=== PATIENT | female | born 1965 | race Hispanic/Latino ===

== ENCOUNTER 2023-05-20 09:50 | Inpatient (IN) | payer BC ==
[~2023-05-20] VITALS: Ht 162.6 cm; Wt 146.6 kg
[2023-05-20 10:31] LABS: BASOPHILS # (AUTO) 0.06 K/uL (0.00-0.20); BASOPHILS % (AUTO) 0.8 % (0.0-5.0); EOSINOPHILS # (AUTO) 0.15 K/uL (0.00-0.70); EOSINOPHILS % (AUTO) 2.1 % (0.0-8.0); HEMATOCRIT 37.4 % (36-48); IMMATURE GRANULOCYTE ABSOLUTE 0.02 K/uL (0-1); LYMPHOCYTES # (AUTO) 2.2 K/uL (1.0-4.8); LYMPHOCYTES % (AUTO) 29.5 % (21.0-51.0); MEAN CORPUSCULAR HEMOGLOBIN 23.9 pg (27.0-33.0); MEAN CORPUSCULAR HGB CONC 31.6 g/dL (32.0-36.0); MEAN CORPUSCULAR VOLUME 75.7 fL (79-99); MONOCYTES # (AUTO) 0.4 K/uL (0.1-1.0); MONOCYTES % (AUTO) 5.5 % (3.0-13.0); NEUTROPHILS # (AUTO) 4.5 K/uL (1.8-7.7); NEUTROPHILS % (AUTO) 61.8 % (40.0-77.0); PLATELET COUNT (AUTO) 289 K/uL (130-400); RED BLOOD CELL COUNT(AUTO) 4.94 MIL/uL (4.00-5.50); RED CELL DISTRIBUTION WIDTH 15.7 % (11.0-15.5); WHITE BLOOD COUNT (AUTO) 7.3 K/uL (4.8-10.8)
[2023-05-20 10:47] LABS: CREATININE 0.6 mg/dL (0.5-1.5); POTASSIUM 3.7 mmol/L (3.5-5.1)
[2023-05-20 10:52] LABS: ALBUMIN 3.2 g/dL (3.5-5.0); BILIRUBIN,TOTAL 0.5 mg/dL (0.2-1.0); TOTAL PROTEIN, SERUM 7.8 g/dL (6.0-8.3)
[2023-05-20] MEDS ORDERED: IOHEXOL-350 75 ML VIAL IV ONE (11:26)
[2023-05-20] MEDS ORDERED: ONDANSETRON 4MG INJ IVP ONE (11:30)
[2023-05-20] MEDS ORDERED: 0.9%NACL 1000ML 1,000 ML IV ONE (11:30)
[2023-05-20] MEDS ORDERED: DIATR MEGLU/DIATRIZOATE SODIUM 30 ML BOTTLE ONE (11:51)
[2023-05-20] MEDS: DEXTROSE 5 %-0.45 % NACL 1,000 ML IV SCH (17:01)
[2023-05-20] MEDS: KETOROLAC 15MG/ML VIAL (15MG/ML) IV PRN (19:48)
[2023-05-20] MEDS ORDERED: SERT25TA PO (22:49)
[2023-05-20 23:20] VITALS: BP 141/64; PULSE 57; RESP 20
[2023-05-21] VITALS (30 sets, daily range): BP systolic 104–167; BP diastolic 53–90; PULSE 47–90; RESP 14–20; O2SAT 99–100
[2023-05-21 04:59] LABS: HEMATOCRIT 32.2 % (36-48); MEAN CORPUSCULAR HEMOGLOBIN 24.1 pg (27.0-33.0); MEAN CORPUSCULAR HGB CONC 31.7 g/dL (32.0-36.0); MEAN CORPUSCULAR VOLUME 76.1 fL (79-99); RED BLOOD CELL COUNT(AUTO) 4.23 MIL/uL (4.00-5.50); RED CELL DISTRIBUTION WIDTH 15.8 % (11.0-15.5); WHITE BLOOD COUNT (AUTO) 5.5 K/uL (4.8-10.8)
[2023-05-21 05:20] LABS: ALBUMIN 2.7 g/dL (3.5-5.0); BILIRUBIN,TOTAL 0.5 mg/dL (0.2-1.0); CREATININE 0.5 mg/dL (0.5-1.5); POTASSIUM 3.6 mmol/L (3.5-5.1); TOTAL PROTEIN, SERUM 6.4 g/dL (6.0-8.3)
[2023-05-21] MEDS: DEXTROSE 5 %-0.45 % NACL 1,000 ML IV SCH ×2 (09:24→21:35)
[2023-05-21] MEDS ORDERED: ROCURONIUM 10MG/1ML SYR 10 MG/ML ML ONE ×2 (13:12→14:06)
[2023-05-21] MEDS ORDERED: FENTANYL CITRATE PF 50 MCG/1 ML 5ML AMP IV ONE (13:12)
[2023-05-21] MEDS ORDERED: MIDAZOLAM HCL 1 MG/ML 2ML VIAL ONE (13:12)
[2023-05-21] MEDS ORDERED: SUCCINYLCHOLINE 200MG/10ML SYR ONE (13:12)
[2023-05-21] MEDS ORDERED: PROPOFOL 10 MG/ML 20ML VIAL IV ONE (13:12)
[2023-05-21] MEDS ORDERED: LIDOCAINE PF 100MG/5ML (2%) SYRINGE 5ML ONE (13:12)
[2023-05-21] MEDS ORDERED: NEOSTIGMINE 5MG/5ML SYR IV ONE (15:03)
[2023-05-21] MEDS ORDERED: GLYCOPYRROLATE 1 MG/5 ML SYRINGE ONE (15:03)
[2023-05-21] MEDS ORDERED: MEPERIDINE-PF 25 MG/ML SYG ONE (15:35)
[2023-05-21] MEDS ORDERED: KETOROLAC 30MG VIAL (30MG/ML) ONE (15:35)
[2023-05-21] MEDS ORDERED: ONDANSETRON 4MG INJ ONE (15:35)
[2023-05-21] MEDS ORDERED: FENTANYL CITRATE PF 50 MCG/1 ML 2ML VIAL ONE (15:39)
[2023-05-21] MEDS ORDERED: GLYCOPYRROLATE 0.2 MG/ML 5 ML VIAL ONE (15:43)
[2023-05-21] MEDS ORDERED: CEFAZOLIN SODIUM 2 GM VIAL ONE (16:13)
[2023-05-21] MEDS ORDERED: ONDANSETRON 4MG INJ IVP PRN (18:00)
[2023-05-21] MEDS: CEFAZOLIN SODIUM 2 GM VIAL IVPB SCH (18:22)
[2023-05-21] MEDS: KETOROLAC 15MG/ML VIAL (15MG/ML) IV PRN (18:26)
[2023-05-21] MEDS: TRAMADOL HCL 50 MG TABLET PO PRN (21:27)
[2023-05-22] VITALS (7 sets, daily range): BP systolic 103–126; BP diastolic 42–82; PULSE 88–105; RESP 18–20; O2SAT 95
[2023-05-22] MEDS: CEFAZOLIN SODIUM 2 GM VIAL IVPB SCH ×3 (01:57→18:51)
[2023-05-22] MEDS: TRAMADOL HCL 50 MG TABLET PO PRN ×3 (04:16→21:41)
[2023-05-22 05:27] LABS: BASOPHILS # (AUTO) 0.02 K/uL (0.00-0.20); BASOPHILS % (AUTO) 0.2 % (0.0-5.0); HEMATOCRIT 32.5 % (36-48); IMMATURE GRANULOCYTE ABSOLUTE 0.04 K/uL (0-1); LYMPHOCYTES # (AUTO) 0.8 K/uL (1.0-4.8); LYMPHOCYTES % (AUTO) 6.8 % (21.0-51.0); MEAN CORPUSCULAR HEMOGLOBIN 23.9 pg (27.0-33.0); MEAN CORPUSCULAR HGB CONC 31.1 g/dL (32.0-36.0); MONOCYTES # (AUTO) 0.6 K/uL (0.1-1.0); MONOCYTES % (AUTO) 5.3 % (3.0-13.0); NEUTROPHILS # (AUTO) 10.1 K/uL (1.8-7.7); NEUTROPHILS % (AUTO) 87.4 % (40.0-77.0); PLATELET COUNT (AUTO) 235 K/uL (130-400); RED BLOOD CELL COUNT(AUTO) 4.22 MIL/uL (4.00-5.50); RED CELL DISTRIBUTION WIDTH 15.8 % (11.0-15.5); WHITE BLOOD COUNT (AUTO) 11.5 K/uL (4.8-10.8)
[2023-05-22 05:34] LABS: CREATININE 0.7 mg/dL (0.5-1.5); POTASSIUM 3.5 mmol/L (3.5-5.1)
[2023-05-22] MEDS: DEXTROSE 5 %-0.45 % NACL 1,000 ML IV SCH ×2 (10:06→22:20)
[2023-05-22] MEDS: KETOROLAC 15MG/ML VIAL (15MG/ML) IV PRN ×2 (10:13→23:51)
[2023-05-23] VITALS (8 sets, daily range): BP systolic 114–138; BP diastolic 51–92; PULSE 76–107; RESP 20; O2SAT 92
[2023-05-23] MEDS: CEFAZOLIN SODIUM 2 GM VIAL IVPB SCH ×3 (02:34→18:11)
[2023-05-23 04:47] LABS: BASOPHILS # (AUTO) 0.04 K/uL (0.00-0.20); BASOPHILS % (AUTO) 0.3 % (0.0-5.0); EOSINOPHILS # (AUTO) 0.08 K/uL (0.00-0.70); EOSINOPHILS % (AUTO) 0.7 % (0.0-8.0); HEMATOCRIT 33.6 % (36-48); IMMATURE GRANULOCYTE ABSOLUTE 0.07 K/uL (0-1); LYMPHOCYTES # (AUTO) 1.3 K/uL (1.0-4.8); LYMPHOCYTES % (AUTO) 10.9 % (21.0-51.0); MEAN CORPUSCULAR HEMOGLOBIN 24.2 pg (27.0-33.0); MEAN CORPUSCULAR HGB CONC 31.3 g/dL (32.0-36.0); MEAN CORPUSCULAR VOLUME 77.4 fL (79-99); MONOCYTES # (AUTO) 0.8 K/uL (0.1-1.0); MONOCYTES % (AUTO) 6.3 % (3.0-13.0); NEUTROPHILS # (AUTO) 9.7 K/uL (1.8-7.7); NEUTROPHILS % (AUTO) 81.2 % (40.0-77.0); PLATELET COUNT (AUTO) 232 K/uL (130-400); RED BLOOD CELL COUNT(AUTO) 4.34 MIL/uL (4.00-5.50); RED CELL DISTRIBUTION WIDTH 16.5 % (11.0-15.5)
[2023-05-23 05:10] LABS: ALBUMIN 2.6 g/dL (3.5-5.0); BILIRUBIN,TOTAL 1.1 mg/dL (0.2-1.0); CREATININE 0.7 mg/dL (0.5-1.5); POTASSIUM 3.9 mmol/L (3.5-5.1); TOTAL PROTEIN, SERUM 6.9 g/dL (6.0-8.3)
[2023-05-23] MEDS: ACETAMINOPHEN 500 MG TABLET PO PRN ×2 (08:31→20:05)
[2023-05-23] MEDS: KETOROLAC 15MG/ML VIAL (15MG/ML) IV PRN ×2 (08:32→17:19)
[2023-05-23] MEDS: DEXTROSE 5 %-0.45 % NACL 1,000 ML IV SCH (09:45)
[2023-05-23] MEDS ORDERED: INSULIN HUMULIN R 100 UNIT/ML 3ML SQ SCH (11:30)
[2023-05-23] MEDS: TRAMADOL HCL 50 MG TABLET PO PRN ×2 (15:32→23:28)
[2023-05-23] MEDS: INSULIN HUMULIN R 100 UNIT/ML 3ML SQ SCH ×2 (16:30→19:41)
[2023-05-24] VITALS: BP 116/65; PULSE 97; RESP 20
[2023-05-24] MEDS: DEXTROSE 5 %-0.45 % NACL 1,000 ML IV SCH (01:00)
[2023-05-24] MEDS: CEFAZOLIN SODIUM 2 GM VIAL IVPB SCH ×3 (03:01→17:58)
[2023-05-24] MEDS: KETOROLAC 15MG/ML VIAL (15MG/ML) IV PRN ×3 (03:27→22:55)
[2023-05-24 04:00] VITALS: BP 148/55; PULSE 93; RESP 20
[2023-05-24] MEDS: INSULIN HUMULIN R 100 UNIT/ML 3ML SQ SCH ×4 (05:45→20:50)
[2023-05-24 08:00] VITALS: BP 120/72; PULSE 88; RESP 18; O2SAT 97
[2023-05-24] MEDS: 0.9%NACL 1000ML 1,000 ML IV SCH (09:06)
[2023-05-24 12:00] VITALS: BP 128/74; PULSE 85; RESP 20
[2023-05-24 16:00] VITALS: BP 130/68; PULSE 71; RESP 20
[2023-05-24] MEDS ORDERED: SERT25TA PO (17:28)
[2023-05-24 20:00] VITALS: BP 161/83; PULSE 83; RESP 18
[2023-05-24] MEDS: TRAMADOL HCL 50 MG TABLET PO PRN (21:05)
[2023-05-24] MEDS: ACETAMINOPHEN 500 MG TABLET PO PRN (23:48)
[2023-05-25] VITALS (9 sets, daily range): BP systolic 110–157; BP diastolic 50–92; PULSE 76–103; RESP 18–21; TEMP 98.6; O2SAT 100
[2023-05-25] MEDS: CEFAZOLIN SODIUM 2 GM VIAL IVPB SCH ×2 (02:04→10:51)
[2023-05-25] MEDS: 0.9%NACL 1000ML 1,000 ML IV SCH (04:30)
[2023-05-25 05:31] LABS: HEMATOCRIT 33.6 % (36-48); MEAN CORPUSCULAR HEMOGLOBIN 24.2 pg (27.0-33.0); MEAN CORPUSCULAR HGB CONC 31.5 g/dL (32.0-36.0); MEAN CORPUSCULAR VOLUME 76.7 fL (79-99); RED BLOOD CELL COUNT(AUTO) 4.38 MIL/uL (4.00-5.50); RED CELL DISTRIBUTION WIDTH 16.5 % (11.0-15.5)
[2023-05-25 05:44] LABS: ALBUMIN 2.4 g/dL (3.5-5.0); CREATININE 0.8 mg/dL (0.5-1.5); POTASSIUM 3.4 mmol/L (3.5-5.1); TOTAL PROTEIN, SERUM 7.1 g/dL (6.0-8.3)
[2023-05-25] MEDS: INSULIN HUMULIN R 100 UNIT/ML 3ML SQ SCH ×4 (07:30→21:00)
[2023-05-25] MEDS: SERTRALINE HCL 50 MG TABLET PO SCH (08:43)
[2023-05-25] MEDS: TRAMADOL HCL 50 MG TABLET PO PRN (10:51)
[2023-05-25] MEDS: ZOSYN 3.375GM +NS 50ML IVPB SCH ×2 (13:54→21:05)
[2023-05-25] MEDS ORDERED: 0.9%NACL 50ML IV SCH (14:00)
[2023-05-25] MEDS ORDERED: DIATR MEGLU/DIATRIZOATE SODIUM 30 ML BOTTLE ONE (14:27)
[2023-05-25] MEDS ORDERED: IOHEXOL 350 MG/ML 100ML INFUS..BTL IV ONE (15:42)
[2023-05-26] MEDS: 0.9%NACL 1000ML 1,000 ML IV SCH ×3 (00:30→20:30)
[2023-05-26] MEDS: TRAMADOL HCL 50 MG TABLET PO PRN ×3 (02:11→22:43)
[2023-05-26 04:05] VITALS: BP 131/63; PULSE 92; RESP 17
[2023-05-26 06:16] LABS: BASOPHILS # (AUTO) 0.03 K/uL (0.00-0.20); BASOPHILS % (AUTO) 0.4 % (0.0-5.0); EOSINOPHILS # (AUTO) 0.01 K/uL (0.00-0.70); EOSINOPHILS % (AUTO) 0.1 % (0.0-8.0); IMMATURE GRANULOCYTE ABSOLUTE 0.05 K/uL (0-1); LYMPHOCYTES # (AUTO) 0.7 K/uL (1.0-4.8); LYMPHOCYTES % (AUTO) 9.9 % (21.0-51.0); MEAN CORPUSCULAR HEMOGLOBIN 24.1 pg (27.0-33.0); MEAN CORPUSCULAR HGB CONC 31.8 g/dL (32.0-36.0); MEAN CORPUSCULAR VOLUME 75.9 fL (79-99); MONOCYTES # (AUTO) 0.5 K/uL (0.1-1.0); MONOCYTES % (AUTO) 6.5 % (3.0-13.0); NEUTROPHILS # (AUTO) 6.2 K/uL (1.8-7.7); NEUTROPHILS % (AUTO) 82.4 % (40.0-77.0); PLATELET COUNT (AUTO) 172 K/uL (130-400); RED BLOOD CELL COUNT(AUTO) 3.69 MIL/uL (4.00-5.50); RED CELL DISTRIBUTION WIDTH 16.6 % (11.0-15.5); WHITE BLOOD COUNT (AUTO) 7.5 K/uL (4.8-10.8)
[2023-05-26] MEDS: ZOSYN 3.375GM +NS 50ML IVPB SCH (06:17)
[2023-05-26 06:39] LABS: ALBUMIN 1.9 g/dL (3.5-5.0); BILIRUBIN,TOTAL 1.1 mg/dL (0.2-1.0); CREATININE 0.6 mg/dL (0.5-1.5); POTASSIUM 3.4 mmol/L (3.5-5.1); TOTAL PROTEIN, SERUM 6.1 g/dL (6.0-8.3)
[2023-05-26] MEDS: INSULIN HUMULIN R 100 UNIT/ML 3ML SQ SCH ×4 (07:30→21:00)
[2023-05-26 08:00] VITALS: BP 127/74; PULSE 87; RESP 18
[2023-05-26 08:30] VITALS: O2SAT 97
[2023-05-26] MEDS: SERTRALINE HCL 50 MG TABLET PO SCH (09:00)
[2023-05-26] MEDS: FLUCONAZOLE 200 MG/NS 100 ML IV SCH (10:15)
[2023-05-26] MEDS ORDERED: COMPOUND IV MISC 1 EACH IVSOLN MISC PRN (11:00)
[2023-05-26] MEDS: MEROPENEM 1 GM in 0.9%NACL 100ML 100 ML IVPB SCH ×2 (11:04→17:39)
[2023-05-26 11:30] VITALS: BP 128/69; PULSE 84; RESP 18
[2023-05-26 17:17] VITALS: BP 123/72; PULSE 88; RESP 18
[2023-05-26 20:34] VITALS: BP 131/72; PULSE 84; RESP 18
[2023-05-26] MEDS ORDERED: TRAMADOL HCL 50 MG TABLET ONE (22:41)
[2023-05-27] VITALS (9 sets, daily range): BP systolic 110–140; BP diastolic 58–78; PULSE 81–95; RESP 18–19; O2SAT 95–97
[2023-05-27] MEDS: MEROPENEM 1 GM in 0.9%NACL 100ML 100 ML IVPB SCH ×3 (02:04→16:52)
[2023-05-27] MEDS: INSULIN HUMULIN R 100 UNIT/ML 3ML SQ SCH ×4 (07:30→20:47)
[2023-05-27] MEDS: SERTRALINE HCL 50 MG TABLET PO SCH (09:26)
[2023-05-27] MEDS: FLUCONAZOLE 200 MG/NS 100 ML IV SCH (09:27)
[2023-05-27] MEDS: TRAMADOL HCL 50 MG TABLET PO PRN ×2 (13:27→22:40)
[2023-05-27] MEDS ORDERED: NACL NASAL SPRAY 120 SPRAY/BOTTLE NS PRN (14:30)
[2023-05-27] MEDS: KCL 20 MEQ ERTAB PO PRN (16:54)
[2023-05-27] MEDS ORDERED: POTASSIUM CHLORIDE 10% ELIXIR 20 MEQ/15 ML UDCUP PO PRN (17:00)
[2023-05-27] MEDS ORDERED: POTASSIUM CHLORIDE 20MEQ/100ML 100 ML IV PRN (17:00)
[2023-05-27] MEDS: 0.9%NACL 1000ML 1,000 ML IV SCH (20:48)
[2023-05-28] MEDS: MEROPENEM 1 GM in 0.9%NACL 100ML 100 ML IVPB SCH ×3 (00:19→17:32)
[2023-05-28] MEDS: DIPHENHYDRAMINE HCL 25 MG CAPSULE PO PRN ×2 (00:19→23:01)
[2023-05-28 04:37] VITALS: BP 126/68; PULSE 90; RESP 18
[2023-05-28] MEDS: INSULIN HUMULIN R 100 UNIT/ML 3ML SQ SCH ×4 (05:21→21:00)
[2023-05-28] MEDS: TRAMADOL HCL 50 MG TABLET PO PRN ×2 (07:14→21:24)
[2023-05-28 07:20] VITALS: BP 113/87; PULSE 82; RESP 20
[2023-05-28 07:26] LABS: CREATININE 0.7 mg/dL (0.5-1.5); POTASSIUM 3.7 mmol/L (3.5-5.1)
[2023-05-28 08:00] VITALS: O2SAT 95
[2023-05-28] MEDS: FLUCONAZOLE 200 MG/NS 100 ML IV SCH (09:04)
[2023-05-28] MEDS: SERTRALINE HCL 50 MG TABLET PO SCH (09:05)
[2023-05-28 11:20] VITALS: BP 113/58; PULSE 81; RESP 20
[2023-05-28] MEDS: 0.9%NACL 1000ML 1,000 ML IV SCH (12:30)
[2023-05-28 15:25] VITALS: BP 118/66; PULSE 77; RESP 20
[2023-05-28 20:00] VITALS: BP 124/70; PULSE 82; RESP 18
[2023-05-29] VITALS (7 sets, daily range): BP systolic 119–146; BP diastolic 54–71; PULSE 76–82; RESP 18–20; O2SAT 100
[2023-05-29] MEDS: MEROPENEM 1 GM in 0.9%NACL 100ML 100 ML IVPB SCH ×3 (00:44→17:53)
[2023-05-29 05:17] LABS: BASOPHILS # (AUTO) 0.03 K/uL (0.00-0.20); BASOPHILS % (AUTO) 0.4 % (0.0-5.0); EOSINOPHILS # (AUTO) 0.39 K/uL (0.00-0.70); EOSINOPHILS % (AUTO) 4.9 % (0.0-8.0); IMMATURE GRANULOCYTE ABSOLUTE 0.07 K/uL (0-1); LYMPHOCYTES # (AUTO) 1.2 K/uL (1.0-4.8); LYMPHOCYTES % (AUTO) 15.4 % (21.0-51.0); MEAN CORPUSCULAR HEMOGLOBIN 24.1 pg (27.0-33.0); MEAN CORPUSCULAR VOLUME 75.3 fL (79-99); MONOCYTES # (AUTO) 0.4 K/uL (0.1-1.0); MONOCYTES % (AUTO) 5.3 % (3.0-13.0); NEUTROPHILS # (AUTO) 5.8 K/uL (1.8-7.7); NEUTROPHILS % (AUTO) 73.1 % (40.0-77.0); PLATELET COUNT (AUTO) 229 K/uL (130-400); RED BLOOD CELL COUNT(AUTO) 3.32 MIL/uL (4.00-5.50); RED CELL DISTRIBUTION WIDTH 17.2 % (11.0-15.5)
[2023-05-29 05:33] LABS: ALBUMIN 1.6 g/dL (3.5-5.0); BILIRUBIN,TOTAL 0.5 mg/dL (0.2-1.0); CREATININE 0.4 mg/dL (0.5-1.5); POTASSIUM 3.3 mmol/L (3.5-5.1); TOTAL PROTEIN, SERUM 5.5 g/dL (6.0-8.3)
[2023-05-29] MEDS: INSULIN HUMULIN R 100 UNIT/ML 3ML SQ SCH ×4 (06:28→20:43)
[2023-05-29] MEDS: KCL 20 MEQ ERTAB PO PRN ×3 (06:33→17:54)
[2023-05-29 07:02] LABS: ERYTHROCYTE SEDIMENTATION RATE 80 MM/HR (0-30)
[2023-05-29] MEDS: 0.9%NACL 1000ML 1,000 ML IV SCH (08:30)
[2023-05-29] MEDS: FLUCONAZOLE 200 MG/NS 100 ML IV SCH (08:31)
[2023-05-29] MEDS: SERTRALINE HCL 50 MG TABLET PO SCH (08:31)
[2023-05-29] MEDS: TRAMADOL HCL 50 MG TABLET PO PRN ×2 (08:42→20:43)
[2023-05-29] MEDS: DIPHENHYDRAMINE HCL 25 MG CAPSULE PO PRN (22:46)
[2023-05-30] VITALS (9 sets, daily range): BP systolic 113–145; BP diastolic 41–59; PULSE 61–79; RESP 16–20; O2SAT 100
[2023-05-30] MEDS: MEROPENEM 1 GM in 0.9%NACL 100ML 100 ML IVPB SCH ×3 (00:52→19:16)
[2023-05-30] MEDS: 0.9%NACL 1000ML 1,000 ML IV SCH (04:30)
[2023-05-30] MEDS: INSULIN HUMULIN R 100 UNIT/ML 3ML SQ SCH ×4 (05:46→20:16)
[2023-05-30] MEDS: FLUCONAZOLE 200 MG/NS 100 ML IV SCH (08:32)
[2023-05-30] MEDS: SERTRALINE HCL 50 MG TABLET PO SCH (08:32)
[2023-05-30] MEDS: TRAMADOL HCL 50 MG TABLET PO PRN (20:12)
[2023-05-31] MEDS: MEROPENEM 1 GM in 0.9%NACL 100ML 100 ML IVPB SCH ×4 (00:11→20:29)
[2023-05-31] MEDS: 0.9%NACL 1000ML 1,000 ML IV SCH ×2 (00:21→20:28)
[2023-05-31] MEDS: DIPHENHYDRAMINE HCL 25 MG CAPSULE PO PRN (00:23)
[2023-05-31 04:00] VITALS: BP 134/37; PULSE 75; RESP 18
[2023-05-31] MEDS: INSULIN HUMULIN R 100 UNIT/ML 3ML SQ SCH ×4 (06:24→20:28)
[2023-05-31 08:00] VITALS: BP 113/43; PULSE 76; RESP 20; O2SAT 99
[2023-05-31] MEDS: FLUCONAZOLE 200 MG/NS 100 ML IV SCH (09:05)
[2023-05-31] MEDS: SERTRALINE HCL 50 MG TABLET PO SCH (09:09)
[2023-05-31 11:49] VITALS: BP 131/78; PULSE 72; RESP 20
[2023-05-31 12:48] LABS: HEMATOCRIT 28.4 % (36-48); MEAN CORPUSCULAR HEMOGLOBIN 23.7 pg (27.0-33.0); MEAN CORPUSCULAR VOLUME 76.3 fL (79-99); PLATELET COUNT (AUTO) 389 K/uL (130-400); RED BLOOD CELL COUNT(AUTO) 3.72 MIL/uL (4.00-5.50); RED CELL DISTRIBUTION WIDTH 17.7 % (11.0-15.5); WHITE BLOOD COUNT (AUTO) 5.1 K/uL (4.8-10.8)
[2023-05-31 12:59] LABS: INR 1.05 (0.85-1.15); PROTHROMBIN TIME 12.1 SEC (9.6-11.6)
[2023-05-31 13:06] LABS: CREATININE 0.4 mg/dL (0.5-1.5); POTASSIUM 3.9 mmol/L (3.5-5.1)
[2023-05-31 16:00] VITALS: BP 144/59; PULSE 77; RESP 20
[2023-05-31 19:00] VITALS: BP 148/56; PULSE 76; RESP 18
[2023-05-31] MEDS: TRAMADOL HCL 50 MG TABLET PO PRN (19:16)
[2023-05-31 23:31] VITALS: BP 128/62; PULSE 77; RESP 18
[2023-06-01] MEDS: DIPHENHYDRAMINE HCL 25 MG CAPSULE PO PRN (00:28)
[2023-06-01 04:00] VITALS: BP 138/53; PULSE 72; RESP 18
[2023-06-01] MEDS: INSULIN HUMULIN R 100 UNIT/ML 3ML SQ SCH ×4 (05:58→20:18)
[2023-06-01] MEDS: TRAMADOL HCL 50 MG TABLET PO PRN (06:02)
[2023-06-01 08:00] VITALS: BP 126/77; PULSE 71; RESP 18; O2SAT 96
[2023-06-01] MEDS: SERTRALINE HCL 50 MG TABLET PO SCH (09:42)
[2023-06-01] MEDS: FLUCONAZOLE 200 MG/NS 100 ML IV SCH (09:42)
[2023-06-01] MEDS: MEROPENEM 1 GM in 0.9%NACL 100ML 100 ML IVPB SCH ×2 (09:43→16:56)
[2023-06-01 12:00] VITALS: BP 126/78; PULSE 75; RESP 19
[2023-06-01 16:00] VITALS: BP 116/60; PULSE 72; RESP 18
[2023-06-01] MEDS: 0.9%NACL 1000ML 1,000 ML IV SCH (16:29)
[2023-06-01 20:00] VITALS: BP 126/67; PULSE 72; RESP 17
[2023-06-02] VITALS (7 sets, daily range): BP systolic 109–138; BP diastolic 52–87; PULSE 66–73; RESP 18–19; O2SAT 94–96
[2023-06-02] MEDS: MEROPENEM 1 GM in 0.9%NACL 100ML 100 ML IVPB SCH ×3 (01:04→18:13)
[2023-06-02] MEDS: INSULIN HUMULIN R 100 UNIT/ML 3ML SQ SCH ×5 (05:33→20:08)
[2023-06-02] MEDS: FLUCONAZOLE 200 MG/NS 100 ML IV SCH (09:25)
[2023-06-02] MEDS: SERTRALINE HCL 50 MG TABLET PO SCH (09:25)
[2023-06-02] MEDS: 0.9%NACL 1000ML 1,000 ML IV SCH (16:22)
[2023-06-02] MEDS: TRAMADOL HCL 50 MG TABLET PO PRN (20:50)
[2023-06-03] VITALS (7 sets, daily range): BP systolic 123–159; BP diastolic 51–90; PULSE 65–100; RESP 16–20; O2SAT 95–97
[2023-06-03] MEDS: MEROPENEM 1 GM in 0.9%NACL 100ML 100 ML IVPB SCH ×3 (01:44→17:21)
[2023-06-03] MEDS: DIPHENHYDRAMINE HCL 25 MG CAPSULE PO PRN (01:44)
[2023-06-03] MEDS: INSULIN HUMULIN R 100 UNIT/ML 3ML SQ SCH ×4 (06:34→20:02)
[2023-06-03] MEDS: FLUCONAZOLE 200 MG/NS 100 ML IV SCH (08:35)
[2023-06-03] MEDS: SERTRALINE HCL 50 MG TABLET PO SCH (08:40)
[2023-06-03] MEDS: 0.9%NACL 1000ML 1,000 ML IV SCH (08:41)
[2023-06-04] VITALS (9 sets, daily range): BP systolic 115–145; BP diastolic 55–75; PULSE 71–78; RESP 15–20; O2SAT 96–98
[2023-06-04] MEDS: TRAMADOL HCL 50 MG TABLET PO PRN ×2 (00:36→22:21)
[2023-06-04] MEDS: MEROPENEM 1 GM in 0.9%NACL 100ML 100 ML IVPB SCH ×3 (01:37→17:30)
[2023-06-04] MEDS: 0.9%NACL 1000ML 1,000 ML IV SCH (01:38)
[2023-06-04 04:54] LABS: HEMATOCRIT 28.4 % (36-48); MEAN CORPUSCULAR HEMOGLOBIN 23.9 pg (27.0-33.0); MEAN CORPUSCULAR VOLUME 77.2 fL (79-99); RED BLOOD CELL COUNT(AUTO) 3.68 MIL/uL (4.00-5.50); RED CELL DISTRIBUTION WIDTH 17.6 % (11.0-15.5); WHITE BLOOD COUNT (AUTO) 7.1 K/uL (4.8-10.8)
[2023-06-04 05:03] LABS: CREATININE 0.5 mg/dL (0.5-1.5); POTASSIUM 3.8 mmol/L (3.5-5.1)
[2023-06-04] MEDS: INSULIN HUMULIN R 100 UNIT/ML 3ML SQ SCH ×4 (05:28→21:00)
[2023-06-04] MEDS: FLUCONAZOLE 200 MG/NS 100 ML IV SCH (08:35)
[2023-06-04] MEDS: SERTRALINE HCL 50 MG TABLET PO SCH (08:37)
[2023-06-05] MEDS: 0.9%NACL 1000ML 1,000 ML IV SCH (00:30)
[2023-06-05] MEDS: MEROPENEM 1 GM in 0.9%NACL 100ML 100 ML IVPB SCH ×2 (01:17→09:45)
[2023-06-05] MEDS: DIPHENHYDRAMINE HCL 25 MG CAPSULE PO PRN (01:20)
[2023-06-05 04:23] VITALS: BP 118/53; PULSE 68; RESP 18
[2023-06-05] MEDS: INSULIN HUMULIN R 100 UNIT/ML 3ML SQ SCH ×3 (06:37→16:30)
[2023-06-05 07:30] VITALS: O2SAT 98
[2023-06-05 08:00] VITALS: BP 113/68; PULSE 71; RESP 16
[2023-06-05] MEDS: SERTRALINE HCL 50 MG TABLET PO SCH (09:09)
[2023-06-05] MEDS: FLUCONAZOLE 200 MG/NS 100 ML IV SCH (09:09)
[2023-06-05 12:00] VITALS: BP 119/68; PULSE 68; RESP 18
== END 2023-06-05 18:53 | disposition home or self-care (01) | DRG 853 ==
LOC: EDH 09:50 → EDHIP 15:06 → EEVIPCON 15:06 → 4CH 22:09
PROVIDERS: ADMIT Internal Medicine; ATTEND Internal Medicine
PROC: 0DWDXUZ Revision of Feeding Device in Lower Intestinal Tract, External Approach (ICD-10-PCS; 2023-05-21)
PROC: 0DN80ZZ Release Small Intestine, Open Approach (ICD-10-PCS; principal; 2023-05-21 13:16)
PROC: 02HV33Z Insertion of Infusion Device into Superior Vena Cava, Percutaneous Approach (ICD-10-PCS; 2023-05-31)
DX: A41.9 Sepsis, unspecified organism (principal); K65.1 Peritoneal abscess; K56.51 Intestinal adhesions [bands], with partial obstruction; T81.43XA Infection following a procedure, organ and space surgical site, initial encounter; Z16.24 Resistance to multiple antibiotics; Z68.43 Body mass index [BMI] 50.0-59.9, adult; K57.30 Diverticulosis of large intestine without perforation or abscess without bleeding; E11.65 Type 2 diabetes mellitus with hyperglycemia; E66.01 Morbid (severe) obesity due to excess calories; E87.6 Hypokalemia; I10 Essential (primary) hypertension; K31.89 Other diseases of stomach and duodenum; Y83.1 Surgical operation with implant of artificial internal device as the cause of abnormal reaction of the patient, or of later complication, without mention of misadventure at the time of the procedure; Z83.3 Family history of diabetes mellitus
CPT/HCPCS: 36415; 36569; 71045; 74170; 74178; 80048; 80053; 81025; 82948; 83605; 83690; 83735; 85025; 85027; 85610; 85651; 87070; 87076; 87077; 87186; 93970; 97039; A6248; C1894; G0378; J0330; J1450; J1815; J1885; J2001; J2175; J2185; J2250; J2405; J2543; J2704; J2710; J3010; J3490; J7030; J7042; Q0163; Q9963; Q9967; A4215; A4216; A4221; A4222; A4223; A4600; A4649; C1769; G0168; J0690